=== PATIENT | female | born 1950 | race Caucasian/White ===

== ENCOUNTER 2017-04-15 14:17 | Emergency (ER) | payer MEDICARE, BC ==
--- NOTE | 2017-04-15 14:40 | CT ---
Head wo Cont INDICATION: Right-sided stroke. COMPARISON: 784 FINDINGS: No acute intracranial hemorrhage, mass, or edema. Generalized cerebral and cerebellar volu me loss. Patchy low attenuation in the periventricular and subcortical deep white matter is nonspeci fic, but most compatible with chronic small-vessel ischemic changes. Low-attenuation involving the r ight putamen could be due to subacute infarct. Additional small focus of low attenuation in the post erior left parasagittal parietal lobe could represent subacute infarct. Fluid in the right mastoid a ir cells. Remainder unremarkable. IMPRESSION: Low attenuation involving the right putamen could represent subacute or chronic infarct. Additional small focus of low attenuation in the left posterior parasagittal parietal lobe could re present subacute infarct on axial image 27. Findings discussed with Dr. Ibanez by telephone at 2:35 PM on 04/15/2017.
--- NOTE | 2017-04-15 14:46 | CR ---
Chest 1V Frontal INDICATION: rt sided stroke. FINDINGS: Normal heart size. Benign calcified granuloma right midlung. Postoperative changes cervica l spine. Exam otherwise unremarkable.
--- NOTE | 2017-04-15 15:01 | EDM.PDOC ---
ED HPI GENERAL MEDICAL PROBLEM - General Chief Complaint: Neuro Symptoms/Deficits Stated Complaint: STROKE? Time Seen by Provider: 04/15/17 14:20 Source of Information: Reports: Patient, Family History Limitations: Reports: No Limitations - History of Present Illness INITIAL COMMENTS - FREE TEXT/NARRATIVE: Pt has garbled speech and weakness on the left arm and left leg. She states she started having symptoms last nite and di get some better. She continued to have difficulty walking but her speech got better. At 10 am she once again was having difficulty expressing her self. Onset: Other ( started last nite. ) Duration: Hour(s): Location: Reports: Head Associated Symptoms: Reports: Other ( difficulty expressing herself and weakness in the left arm and left leg. ) - Related Data Allergies Allergy/AdvReac Type Severity Reaction Status Date / Time adhesive tape Allergy Rash Verified 04/15/17 14:38 Home Meds: Home Meds Aspirin [Adult Low Dose Aspirin EC] 81 mg PO DAILY 06/03/15 [History] Cholecalciferol (Vitamin D3) [Vitamin D3] 50,000 units PO Q7D 06/03/15 [History] FLUoxetine [PROzac] 40 mg PO DAILY 06/03/15 [History] Ibuprofen 400 mg PO Q4H PRN 06/03/15 [History] Lisinopril [Prinivil] 10 mg PO DAILY 06/03/15 [History] Metoprolol Tartrate [Lopressor] 25 mg PO BID 06/03/15 [History] Niacin 250 mg PO DAILY 06/03/15 [History] Potassium Chloride [Klor-Con 10] 20 meq PO DAILY 06/03/15 [History] Rosuvastatin [Crestor] 20 mg PO BEDTIME 06/03/15 [History] diphenhydrAMINE [Benadryl] 25 mg PO Q6H PRN 06/03/15 [History] Past Medical History Cardiovascular History: Reports: High Cholesterol, Hypertension Respiratory History: Reports: COPD Gastrointestinal History: Reports: Chronic Constipation, Colon Polyp [employer] History: Reports: Neurological History: Reports: Vertigo, Other (See Below) Other Neuro History: black outs with falls Psychiatric History: Reports: Depression Endocrine/Metabolic History: Reports: Hypothyroidism Other Endocrine/Metabolic History: thyroid nodule Other Dermatologic History: abrasions, scabs from falls, poison amrik in past, skin cancer on nose the "good kind" - Past Surgical History HEENT Surgical History: Reports: Cataract Surgery, Laser Surgery, Naso-Sinus Surgery Respiratory Surgical History: Reports: None Female Surgical History: Reports: Section, Hysterectomy Endocrine Surgical History: Reports: None Neurological Surgical History: Reports: Other (See Below) Other Musculoskeletal Surgeries/Procedures:: neck fusion Other Oncologic Surgeries/Procedures: skin CA removed from nose Social & Family History - Tobacco Use Smoking Status *Q: Current Every Day Smoker Years of Tobacco use: 47 Packs/Tins Daily: 1 Used Tobacco, but Quit: No Second Hand Smoke Exposure: Yes - Recreational Drug Use Recreational Drug Use: No ED ROS GENERAL - Review of Systems Review Of Systems: See Below Constitutional: Reports: No Symptoms HEENT: Reports: No Symptoms Respiratory: Reports: No Symptoms, Other (pt is a heavy smoker) Cardiovascular: Reports: No Symptoms Endocrine: Reports: No Symptoms GI/Abdominal: Reports: No Symptoms : Reports: No Symptoms Musculoskeletal: Reports: No Symptoms Skin: Reports: No Symptoms Neurological: Reports: Trouble Speaking, Difficulty Walking, Weakness, Change in Speech Psychiatric: Reports: No Symptoms ED EXAM, NEURO - Physical Exam Exam: See Below Text/Narrative:: pt started having difficulty speaking and had weaknessin the left arm and the left leg. She is very garbled with her speech. Exam Limited By: No Limitations General Appearance: Alert, Mild Distress, Other ( pt is struggling with her speech pupils are equal and reactive) Ears: Normal TMs Nose: Normal Inspection Throat/Mouth: Normal Inspection Head Exam: Atraumatic Neck: Normal Inspection Respiratory/Chest: No Respiratory Distress Cardiovascular: Regular Rate, Rhythm GI/Abdominal: Other (normal heart rhythm, her bp is quite elevated) (Female) Exam: Deferred Rectal (Female) Exam: Deferred Neurological: Alert, Oriented x 3, Other (speech is very garbled and she has definite weakness on the left side. ) Back Exam: Normal Inspection Extremities: Other (pt is weak in the left arm and left leg. ) Psychiatric: Depressed Mood, Other (pt is crying alot and seemes more emotional than usual. ) Course - Vital Signs Last Recorded V/S: Last Vital Signs Temp 36.6 C 04/15/17 14:25 Pulse 103 H 04/15/17 14:25 Resp 15 04/15/17 14:25 BP 183/141 H 04/15/17 14:25 Pulse Ox 93 L 04/15/17 14:25 - Orders/Labs/Meds Orders: Active Orders 24 hr Category Date Time Status EKG Documentation Completion [RC] ASDIRECTED Care 04/15/17 14:21 Active UA W/MICROSCOPIC [URIN] Urgent Lab 04/15/17 14:20 Uncollected Sodium Chloride 0.9% [Normal Saline] 1,000 ml Med 04/15/17 15:30 Ordered IV ASDIRECTED EKG 12 Lead [EK] Routine Ther 04/15/17 14:21 Ordered Medication Orders Sodium Chloride (Normal Saline) 1,000 mls @ 75 mls/hr IV ASDIRECTED JAXSON Labs: Laboratory Tests 04/15/17 04/15/17 04/15/17 Range/Units 14:30 14:30 14:30 WBC 9.3 (4.5-11.0) K/uL RBC 4.84 (3.30-5.50) M/uL Hgb 14.8 (12.0-15.0) g/dL Hct 42.6 (36.0-48.0) % MCV 88 (80-98) fL MCH 31 (27-31) pg MCHC 35 (32-36) % Plt Count 207 (150-400) K/uL Neut % (Auto) 70 H (36-66) % Lymph % (Auto) 18 L (24-44) % [place] % (Auto) 8 H (2-6) % Eos % (Auto) 2 (2-4) % Baso % (Auto) 1 (0-1) % APTT (27.0-36.0) sec Sodium 141 (140-148) mmol/L Potassium 3.2 L (3.6-5.2) mmol/L Chloride 105 (100-108) mmol/L Carbon Dioxide 24 (21-32) mmol/L Anion Gap 15.2 H (5.0-14.0) mmol/L BUN 9 (7-18) mg/dL Creatinine 0.9 (0.6-1.0) mg/dL Est Cr Clr Drug Dosing 52.38 mL/min Estimated GFR (MDRD) > 60 (>60) Glucose 96 (74-106) mg/dL Calcium 9.0 (8.5-10.1) mg/dL Total Bilirubin 0.6 (0.2-1.0) mg/dL AST 17 (15-37) U/L ALT 17 (12-78) U/L Alkaline Phosphatase 113 (46-116) U/L Troponin I < 0.017 (0.000-0.056) ng/mL Total Protein 7.6 (6.4-8.2) g/dL Albumin 3.7 (3.4-5.0) g/dL Globulin 3.9 H (2.3-3.5) g/dL Albumin/Globulin Ratio 1.0 L (1.2-2.2) 04/15/17 Range/Units 14:30 WBC (4.5-11.0) K/uL RBC (3.30-5.50) M/uL Hgb (12.0-15.0) g/dL Hct (36.0-48.0) % MCV (80-98) fL MCH (27-31) pg MCHC (32-36) % Plt Count (150-400) K/uL Neut % (Auto) (36-66) % Lymph % (Auto) (24-44) % [place] % (Auto) (2-6) % Eos % (Auto) (2-4) % Baso % (Auto) (0-1) % APTT 27.2 (27.0-36.0) sec Sodium (140-148) mmol/L Potassium (3.6-5.2) mmol/L Chloride (100-108) mmol/L Carbon Dioxide (21-32) mmol/L Anion Gap (5.0-14.0) mmol/L BUN (7-18) mg/dL Creatinine (0.6-1.0) mg/dL Est Cr Clr Drug Dosing mL/min Estimated GFR (MDRD) (>60) Glucose (74-106) mg/dL Calcium (8.5-10.1) mg/dL Total Bilirubin (0.2-1.0) mg/dL AST (15-37) U/L ALT (12-78) U/L Alkaline Phosphatase (46-116) U/L Troponin I (0.000-0.056) ng/mL Total Protein (6.4-8.2) g/dL Albumin (3.4-5.0) g/dL Globulin (2.3-3.5) g/dL Albumin/Globulin Ratio (1.2-2.2) Meds: Medications Generic Name Dose Route Start Last Admin Trade Name Freq PRN Reason Stop Dose Admin Sodium Chloride 1,000 mls @ 75 mls/hr 04/15/17 15:30 Normal Saline IV ASDIRECTED JAXSON Discontinued Medications Generic Name Dose Route Start Last Admin Trade Name Freq PRN Reason Stop Dose Admin Labetalol HCl 20 mg 04/15/17 15:24 Normodyne IVPUSH 04/15/17 15:25 NOW ONE Protocol Potassium Chloride 20 meq 04/15/17 15:28 Klor-Con M20 PO 04/15/17 15:29 ONETIME ONE - Re-Assessments/Exams Free Text/Narrative Re-Assessment/Exam: 04/15/17 15:32 ekg shows a normal sinus. rhythm, her cat scan shows an area of low attenuation in the rt putmen area and a area of low attenuation in left parietal lobe. her lab work looks normal except a k at 3.2. Her bp is elevated 154/114. Departure - Departure Time of Disposition: 15:36 Disposition: DC/Tfer to Acute Hospital 02 Condition: Serious Clinical Impression: Right-sided cerebrovascular accident (CVA), Hypokalemia, Hypertension - Discharge Information Referrals: Jovi Andrew MD [Primary Care Provider] - Forms: ED Department Discharge Care Plan Goals: transfer to [facility]. - My Orders Last 24 Hours: My Active Orders 04/15/17 14:20 UA W/MICROSCOPIC [URIN] Urgent 04/15/17 14:21 EKG Documentation Completion [RC] ASDIRECTED EKG 12 Lead [EK] Routine 04/15/17 15:30 Sodium Chloride 0.9% [Normal Saline] 1,000 ml IV ASDIRECTED - Assessment/Plan Last 24 Hours: My Active Orders 04/15/17 14:20 UA W/MICROSCOPIC [URIN] Urgent 04/15/17 14:21 EKG Documentation Completion [RC] ASDIRECTED EKG 12 Lead [EK] Routine 04/15/17 15:30 Sodium Chloride 0.9% [Normal Saline] 1,000 ml IV ASDIRECTED
[2017-04-15] MEDS ORDERED: Labetalol 20 MG/4 ML Syringe IVPUSH ONE (15:24)
[2017-04-15] MEDS ORDERED: Potassium Chloride 20 MEQ Tab.ER PO ONE (15:28)
[2017-04-15] MEDS ORDERED: Sodium Chloride 0.9% 1,000 ML IV SCH (15:30)
[2017-04-15 15:50] VITALS: BP 166/111
== END 2017-04-15 16:18 ==
LOC: JP.ED 14:17
DX: I63.9 Cerebral infarction, unspecified (principal); G81.94 Hemiplegia, unspecified affecting left nondominant side; E87.6 Hypokalemia; I10 Essential (primary) hypertension; E78.00 Pure hypercholesterolemia, unspecified; J44.9 Chronic obstructive pulmonary disease, unspecified; F32.9 Major depressive disorder, single episode, unspecified; E03.9 Hypothyroidism, unspecified; F17.210 Nicotine dependence, cigarettes, uncomplicated; Z98.49 Cataract extraction status, unspecified eye; Z90.710 Acquired absence of both cervix and uterus; Z98.890 Other specified postprocedural states; Z79.82 Long term (current) use of aspirin; Z79.899 Other long term (current) drug therapy; Z91.048 Other nonmedicinal substance allergy status
CPT/HCPCS: 36415; 70450; 71010; 80053; 84484; 85025; 85730; 93005; 96361; 96374; 99285; J7040; 93010

== ENCOUNTER 2019-05-13 00:05 | Emergency (ER) | payer MEDICARE, BC ==
[2019-05-13] MEDS ORDERED: Lidocaine 1% with EPINEPHrine 1:100,000 50 ML MDV INFILT ONE (01:20)
[2019-05-13] MEDS ORDERED: Diphtheria,Pertussis(Acell),Tetanus Vaccine 0.5 ML SDV IM ONE (01:21)
--- NOTE | 2019-05-13 01:33 | EDM.PDOC ---
ED HPI GENERAL MEDICAL PROBLEM - General Chief Complaint: Laceration Stated Complaint: FELL HIT HEAD Time Seen by Provider: 05/13/19 01:15 Source of Information: Reports: Patient History Limitations: Reports: No Limitations - History of Present Illness INITIAL COMMENTS - FREE TEXT/NARRATIVE: 68 yo who presents with concerns of fall and headstrike. She recently had surgery on her left eye, currently with patch in place. Tonight she stumbled and fell, striking her head on fireplace hearth. No LOC. No blood thinners. She denies neck pain. No RED, no vision changes, no weakness in the extremities or gait difficulty Left Head Pain Score (Numeric/FACES): 2 - Related Data Allergies Allergy/AdvReac Type Severity Reaction Status Date / Time adhesive tape Allergy Rash Verified 05/13/19 00:43 Home Meds: Home Meds Aspirin [Adult Low Dose Aspirin EC] 81 mg PO DAILY 06/03/15 [History] Cholecalciferol (Vitamin D3) [Vitamin D3] 50,000 units PO Q7D 06/03/15 [History] FLUoxetine [PROzac] 40 mg PO DAILY 06/03/15 [History] Lisinopril [Prinivil] 10 mg PO DAILY 06/03/15 [History] Potassium Chloride [Klor-Con 10] 10 meq PO DAILY 06/03/15 [History] Rosuvastatin [Crestor] 40 mg PO BEDTIME 06/03/15 [History] diphenhydrAMINE [Benadryl] 25 mg PO Q6H PRN 06/03/15 [History] Omeprazole 20 mg PO DAILY 05/13/19 [History] amLODIPine Besylate [Amlodipine Besylate] 10 mg PO DAILY 05/13/19 [History] Past Medical History Cardiovascular History: Reports: High Cholesterol, Hypertension Respiratory History: Reports: COPD Gastrointestinal History: Reports: Chronic Constipation, Colon Polyp, GERD [employer] MANAGER History: Reports: Neurological History: Reports: Concussion, CVA, Vertigo, Other (See Below) Other Neuro History: black outs with falls Psychiatric History: Reports: Depression Endocrine/Metabolic History: Reports: Hypothyroidism Other Endocrine/Metabolic History: thyroid nodule Other Dermatologic History: skin cancer on nose the "good kind" - Past Surgical History HEENT Surgical History: Reports: Cataract Surgery, Eye Surgery, Laser Surgery, Naso-Sinus Surgery Respiratory Surgical History: Reports: None GI Surgical History: Reports: Colonoscopy, Polypectomy Female Surgical History: Reports: Section, Hysterectomy Endocrine Surgical History: Reports: None Neurological Surgical History: Reports: Other (See Below) Other Musculoskeletal Surgeries/Procedures:: neck fusion Other Oncologic Surgeries/Procedures: skin CA removed from nose Social & Family History - Tobacco Use Smoking Status *Q: Current Every Day Smoker Years of Tobacco use: 40 Packs/Tins Daily: 0.5 - Recreational Drug Use Recreational Drug Use: No ED ROS GENERAL - Review of Systems Review Of Systems: See Below Constitutional: Reports: No Symptoms HEENT: Reports: No Symptoms Respiratory: Reports: No Symptoms Cardiovascular: Reports: No Symptoms Endocrine: Reports: No Symptoms GI/Abdominal: Reports: No Symptoms : Reports: No Symptoms Musculoskeletal: Reports: No Symptoms Skin: Reports: Wound Neurological: Reports: No Symptoms Psychiatric: Reports: No Symptoms Hematologic/Lymphatic: Reports: No Symptoms Immunologic: Reports: No Symptoms ED EXAM, SKIN/RASH Exam: See Below Exam Limited By: No Limitations General Appearance: Alert Ears: Normal External Exam Nose: Normal Inspection Throat/Mouth: Normal Inspection Head: Normocephalic, Other (Approx 3 cm laceration left forehead with visible galeal aponerosis ) Neck: Non-Tender, Full Range of Motion Respiratory/Chest: No Respiratory Distress, Lungs Clear, Chest Non-Tender Cardiovascular: Regular Rate, Rhythm GI/Abdominal: Soft, Non-Tender Extremities: Normal Inspection Neurological: Alert, Oriented, CN II-XII Intact, No Motor/Sensory Deficits Psychiatric: Normal Affect, Normal Mood Skin: Warm, Dry ED SKIN PROCEDURES - Laceration/Wound Repair Left Forehead Appearance: Subcutaneous, Clean Anesthetic Type: Local Local Anesthesia - Lidocaine (Xylocaine): 1% with EPI Skin Prep: Chlorhexidine (Hibiciens) Exploration/Debridement/Repair: Wound Explored Closed with: Sutures Lac/Wound length In cm: 2.5 Suture Size: 4-0 # of Sutures: 3 Suture Type: Nylon Suture Size: 5-0 # of Sutures: 3 Repaired with: Vicryl Course - Vital Signs Last Recorded V/S: Last Vital Signs Temp Pulse 76 05/13/19 03:17 Resp 20 05/13/19 03:17 BP 127/75 05/13/19 03:17 Pulse Ox 94 L 05/13/19 03:17 - Orders/Labs/Meds Orders: Active Orders 24 hr Category Date Time Status Vaccines to be Administered [RC] PER UNIT ROUTINE Care 05/13/19 01:21 Active Meds: Medications Discontinued Medications Generic Name Dose Route Start Last Admin Trade Name [place] PRN Reason Stop Dose Admin Diphtheria/Tetanus/Acell Pertussis 0.5 ml 05/13/19 01:21 05/13/19 01:56 Adacel IM 05/13/19 01:22 0.5 ml .ONCE ONE Administration Lidocaine/Epinephrine 10 ml 05/13/19 01:20 05/13/19 01:57 Xylocaine 1% With Epinephrine 1:100,000 INFILT 05/13/19 01:21 10 ml ONETIME ONE Administration - Re-Assessments/Exams Free Text/Narrative Re-Assessment/Exam: 68 yo present with left front scalp laceration after mechanical fall with headstrike. CT head and neck negative No other traumatic injuries. Laceration repaired as above - galea aponeurosis closed with vicryl and skin closure with nylon. Instructed on signs of infection. Will f/u with PCP in 5 days for suture removal. 05/13/19 04:45 Departure - Departure Time of Disposition: 04:15 Disposition: Home, Self-Care 01 Clinical Impression: Scalp laceration Qualifiers: Encounter type: initial encounter Qualified Code(s): S01.01XA - Laceration without foreign body of scalp, initial encounter - Discharge Information *PRESCRIPTION DRUG MONITORING PROGRAM REVIEWED*: No *COPY OF PRESCRIPTION DRUG MONITORING REPORT IN PATIENT ASHLYN: No Instructions: Laceration Care, Adult Referrals: Jovi Andrew MD [Primary Care Provider] - Forms: ED Department Discharge Additional Instructions: Watch your wound for signs of infection as discussed and please see a doctor if these develop. You should have your sutures removed in approximately 5 days Try to avoid getting the wound wet for the first 48 hrs - My Orders Last 24 Hours: My Active Orders 05/13/19 01:21 Vaccines to be Administered [RC] PER UNIT ROUTINE - Assessment/Plan Last 24 Hours: My Active Orders 05/13/19 01:21 Vaccines to be Administered [RC] PER UNIT ROUTINE
--- NOTE | 2019-05-13 02:10 | CRLCT ---
INDICATION: Fall. Head trauma. Recent eye surgery. CT HEAD WITHOUT CONTRAST TECHNIQUE: Multiple axial CT images were performed through the head without intravenous contrast administration. COMPARISON: 04/15/[address] FINDINGS: No acute intracranial hemorrhage is identified. No extra-axial collections are evident and there is no mass effect or midline shift. There is mild diffuse age-related brain atrophy, as before. A metallic density consistent with an embolization coil is seen in the region the anterior communicating artery, new compared to the previous exam. Ventricular size and configuration are within normal limits for the patient`s age. Nayak-white differentiation is within normal limits. There is unchanged patchy hypodensity in the periventricular white matter, a nonspecific finding which most likely reflects chronic small vessel ischemic change. Small chronic bilateral basal ganglia and left occipital lobe infarcts are again seen. Intracranial atherosclerotic vascular calcifications are noted. There is a small scalp hematoma over the left frontal region. Osseous structures are within normal limits and no fractures are seen. There is gas within the right orbit and within the globe of the right eye consistent with recent postoperative changes. Included portions of the paranasal sinuses and mastoid air cells are normally aerated. IMPRESSION: 1. No acute intracranial abnormality identified. 2. Small scalp hematoma over the left frontal region. No fracture identified. 3. Mild age-related brain atrophy, white matter hypodensity consistent with chronic small vessel ischemic change, small chronic infarcts, and intracranial atherosclerotic vascular calcifications appear similar to the previous exam. 4. Metallic embolization coil in the region of the anterior communicating artery, new from before. 5. Recent postoperative changes in the right orbit. KANNAN BRENNER MD [employer] Dictated by Panchito Brenner MD @ 05/13/2019 2:08:14 AM Dictated by: Panchito Brenner MD @ 05/13/2019 02:08:27 (Electronically Signed)
--- NOTE | 2019-05-13 02:41 | CRLCT ---
INDICATION: FELL PAIN CT CERVICAL SPINE WITHOUT CONTRAST TECHNIQUE: Multidetector axial CT imaging was performed through the cervical spine, without contrast. Sagittal and coronal reconstructions were generated. FINDINGS: No acute fractures are identified. Osseous alignment is within normal limits and no subluxation is seen. Prevertebral soft tissues are unremarkable. There are mature postoperative changes of cervical fusion of C3 through C7 including bone grafts within the C3-4 through C6-7 disc spaces and posterior bone grafting and stabilization rebeca placement at these levels. Surgical hardware appears intact. Included portions of the airway and lung apices are within normal limits. IMPRESSION: 1. No fracture, subluxation, or other acute finding identified. 2. Cervical spine postoperative changes, as noted above. KANNAN BRENNER MD [employer] Dictated by Panchito Brenner MD @ 05/13/2019 2:41:13 AM Dictated by: Panchito Brenner MD @ 05/13/2019 02:41:32 (Electronically Signed)
[2019-05-13 03:18] VITALS: BP 127/75; PULSE 76
== END 2019-05-13 04:20 | disposition home or self-care (01) ==
LOC: JP.ED 00:05
DX: S01.01XA Laceration without foreign body of scalp, initial encounter (principal); S01.81XA Laceration without foreign body of other part of head, initial encounter; Z23 Encounter for immunization; I10 Essential (primary) hypertension; E78.00 Pure hypercholesterolemia, unspecified; J44.9 Chronic obstructive pulmonary disease, unspecified; K21.9 Gastro-esophageal reflux disease without esophagitis; F32.9 Major depressive disorder, single episode, unspecified; F17.210 Nicotine dependence, cigarettes, uncomplicated; Z91.048 Other nonmedicinal substance allergy status; Z79.82 Long term (current) use of aspirin; Z79.899 Other long term (current) drug therapy; W19.XXXA Unspecified fall, initial encounter; W22.8XXA Striking against or struck by other objects, initial encounter
CPT/HCPCS: 12011; 12051; 70450; 72125; 90471; 90715; 99283; 99283-25

== ENCOUNTER 2019-08-10 18:08 | Emergency (ER) | payer MEDICARE, BC ==
[2019-08-10 18:13] VITALS: BP 116/48; PULSE 73
--- NOTE | 2019-08-10 18:20 | EDM.PDOC ---
ED HPI GENERAL MEDICAL PROBLEM - General Chief Complaint: Syncope Stated Complaint: LIGHT HEADED Time Seen by Provider: 08/10/19 18:15 Source of Information: Reports: Patient, Family, Old Records, RN History Limitations: Reports: No Limitations - History of Present Illness INITIAL COMMENTS - FREE TEXT/NARRATIVE: 69 yo female arrives from [facility] by EMS after she got light-headed in the check out line. Has not been ill recently. Denies CP or SOB. Admits she has not eaten anything all day today. Has had spells like this in the past that resolve with sitting down. No black or bloody stools. No fever. No vomiting. Onset: Today Onset Date: 08/10/19 Onset Time: 17:15 Duration: Other (seconds) Location: Reports: Head (light-headed) Quality: Reports: Other (no pain) Severity: Moderate Improves with: Reports: Other (sitting down) Worsens with: Reports: Other (standing still) Context: Reports: Other (See HPI) Associated Symptoms: Reports: No Other Symptoms Treatments RN OBGYN: Reports: Other (see below) (none) - Related Data Allergies Allergy/AdvReac Type Severity Reaction Status Date / Time adhesive tape Allergy Rash Verified 08/10/19 18:11 Home Meds: Home Meds Aspirin [Adult Low Dose Aspirin EC] 81 mg PO DAILY 06/03/15 [History] Cholecalciferol (Vitamin D3) [Vitamin D3] 50,000 units PO Q7D 06/03/15 [History] FLUoxetine [PROzac] 40 mg PO DAILY 06/03/15 [History] Potassium Chloride [Klor-Con 10] 10 meq PO DAILY 06/03/15 [History] Rosuvastatin [Crestor] 40 mg PO BEDTIME 06/03/15 [History] diphenhydrAMINE [Benadryl] 25 mg PO Q6H PRN 06/03/15 [History] lisinopriL [Prinivil] 10 mg PO DAILY 06/03/15 [History] Omeprazole 20 mg PO DAILY 05/13/19 [History] amLODIPine Besylate [Amlodipine Besylate] 10 mg PO DAILY 05/13/19 [History] Past Medical History Cardiovascular History: Reports: High Cholesterol, Hypertension Respiratory History: Reports: COPD Gastrointestinal History: Reports: Chronic Constipation, Colon Polyp, GERD [employer] History: Reports: Neurological History: Reports: Concussion, CVA, Vertigo, Other (See Below) Other Neuro History: black outs with falls Psychiatric History: Reports: Depression Endocrine/Metabolic History: Reports: Hypothyroidism Other Endocrine/Metabolic History: thyroid nodule Other Dermatologic History: skin cancer on nose the "good kind" - Past Surgical History HEENT Surgical History: Reports: Cataract Surgery, Eye Surgery, Laser Surgery, Naso-Sinus Surgery Respiratory Surgical History: Reports: None GI Surgical History: Reports: Colonoscopy, Polypectomy Female Surgical History: Reports: Section, Hysterectomy Endocrine Surgical History: Reports: None Other Musculoskeletal Surgeries/Procedures:: neck fusion Other Oncologic Surgeries/Procedures: skin CA removed from nose Social & Family History - Tobacco Use Smoking Status *Q: Current Every Day Smoker Years of Tobacco use: 50 Packs/Tins Daily: 1.5 - Caffeine Use Caffeine Use: Reports: None - Recreational Drug Use Recreational Drug Use: No ED ROS GENERAL - Review of Systems Review Of Systems: See Below Constitutional: Reports: No Symptoms HEENT: Reports: No Symptoms Respiratory: Reports: No Symptoms Cardiovascular: Reports: Lightheadedness Endocrine: Reports: No Symptoms GI/Abdominal: Reports: No Symptoms : Reports: No Symptoms Musculoskeletal: Reports: No Symptoms Skin: Reports: No Symptoms Neurological: Reports: No Symptoms Psychiatric: Reports: No Symptoms - Physical Exam Exam: See Below Exam Limited By: No Limitations General Appearance: Alert, WD/WN, No Apparent Distress Eye Exam: Bilateral Eye: Normal Inspection Ears: Normal External Exam, Normal Canal, Hearing Grossly Normal, Normal TMs Nose: Normal Inspection, No Blood Throat/Mouth: Normal Inspection, Normal Lips, Normal Oropharynx, Normal Voice, No Airway Compromise. No: Normal Teeth (edentulous) Head Exam: Atraumatic, Normocephalic Neck: Normal Inspection, Supple, Non-Tender Respiratory/Chest: No Respiratory Distress, Lungs Clear, Normal Breath Sounds, No Accessory Muscle Use Cardiovascular: Normal Peripheral Pulses, Regular Rate, Rhythm, No Edema, Extra Beats GI/Abdominal: Normal Bowel Sounds, Soft, Non-Tender, No Distention Neuro Exam (Abbreviated): Alert, Oriented, CN II-XII Intact, Normal Cognition, No Motor/Sensory Deficits Back Exam: Normal Inspection, Full Range of Motion. No: CVA Tenderness (R), CVA Tenderness (L) Extremities: Normal Inspection, Normal Range of Motion, Non-Tender, No Pedal Edema Psychiatric: Normal Affect, Normal Mood Skin Exam: Warm, Dry, Intact, Normal Color, No Rash EKG INTERPRETATION EKG Date: 08/10/19 Time: 18:05 Rhythm: NSR Rate (Beats/Min): 83 [facility]: Normal P-Wave: Present QRS: Normal ST-T: Normal QT: Normal Comparison: Change From Previous EKG (PVC's more frequent) Course - Vital Signs Last Recorded V/S: Last Vital Signs Temp 36.2 C 08/10/19 18:09 Pulse 73 08/10/19 18:09 Resp 16 08/10/19 18:09 BP 116/48 L 08/10/19 18:09 Pulse Ox 96 08/10/19 18:09 Orthostatic Blood Pressure [ 118/65 Standing] Orthostatic Blood Pressure [ 125/57 Sitting] Orthostatic Blood Pressure [ 114/61 Supine] - Orders/Labs/Meds Orders: Active Orders 24 hr Category Date Time Status Cardiac Monitoring [RC] .As Directed Care 08/10/19 18:21 Active EKG Documentation Completion [RC] ASDIRECTED Care 08/10/19 18:21 Active Orthostatic Vital Signs [RC] ASDIRECTED Care 08/10/19 18:21 Active UA W/MICROSCOPIC [URIN] Stat Lab 08/10/19 18:21 Ordered Magnesium Oxide Med 08/10/19 19:22 Once 800 mg PO ONETIME ONE EKG 12 Lead [EK] Routine Ther 08/10/19 18:21 Ordered Medication Orders Magnesium Oxide (Magnesium Oxide) 800 mg PO ONETIME ONE Stop: 08/10/19 19:23 Last Admin: 08/10/19 19:46 Dose: 800 mg Labs: Laboratory Tests 08/10/19 08/10/19 08/10/19 Range/Units 18:39 18:39 18:39 WBC 11.0 (4.5-11.0) K/uL RBC 4.45 (3.30-5.50) M/uL Hgb 13.1 (12.0-15.0) g/dL Hct 39.6 (36.0-48.0) % MCV 89 (80-98) fL MCH 29 (27-31) pg MCHC 33 (32-36) % Plt Count 235 (150-400) K/uL Sodium 140 (140-148) mmol/L Potassium 3.9 (3.6-5.2) mmol/L Chloride 103 (100-108) mmol/L Carbon Dioxide 23 (21-32) mmol/L Anion Gap 14.2 H (5.0-14.0) mmol/L BUN 13 (7-18) mg/dL Creatinine 1.2 H (0.6-1.0) mg/dL Est Cr Clr Drug Dosing 37.67 mL/min Estimated GFR (MDRD) 44 L (>60) Glucose 97 (74-106) mg/dL Calcium 8.9 (8.5-10.1) mg/dL Magnesium 1.6 L (1.8-2.4) mg/dL Troponin I < 0.017 (0.000-0.056) ng/mL Meds: Medications Generic Name Dose Route Start Last Admin Trade Name Freq PRN Reason Stop Dose Admin Magnesium Oxide 800 mg 08/10/19 19:22 08/10/19 19:46 Magnesium Oxide PO 08/10/19 19:23 800 mg ONETIME ONE Administration Departure - Departure Time of Disposition: 20:24 Disposition: Home, Self-Care 01 Condition: Fair Clinical Impression: Orthostatic dizziness - Discharge Information *PRESCRIPTION DRUG MONITORING PROGRAM REVIEWED*: No *COPY OF PRESCRIPTION DRUG MONITORING REPORT IN PATIENT ASHLYN: No Instructions: Dizziness, [id number] Referrals: Jovi Andrew MD [Primary Care Provider] - Forms: ED Department Discharge Additional Instructions: Eat or drink more regularly. F/U with your provider in the clinic as needed. Sepsis Event Note - Evaluation Sepsis Screening Result: No Definite Risk - Focused Exam Vital Signs: Vital Signs Temp Pulse Resp BP Pulse Ox 08/10/19 18:09 36.2 C 73 16 116/48 L 96 Date Exam was Performed: 08/10/19 Time Exam was Performed: 20:24 - My Orders Last 24 Hours: My Active Orders 08/10/19 18:21 Cardiac Monitoring [RC] .As Directed EKG Documentation Completion [RC] ASDIRECTED Orthostatic Vital Signs [RC] ASDIRECTED UA W/MICROSCOPIC [URIN] Stat EKG 12 Lead [EK] Routine 08/10/19 19:22 Magnesium Oxide 800 mg PO ONETIME ONE - Assessment/Plan Last 24 Hours: My Active Orders 08/10/19 18:21 Cardiac Monitoring [RC] .As Directed EKG Documentation Completion [RC] ASDIRECTED Orthostatic Vital Signs [RC] ASDIRECTED UA W/MICROSCOPIC [URIN] Stat EKG 12 Lead [EK] Routine 08/10/19 19:22 Magnesium Oxide 800 mg PO ONETIME ONE
[2019-08-10] MEDS ORDERED: Magnesium Oxide 400 MG Tab PO ONE (19:22)
== END 2019-08-10 20:33 | disposition home or self-care (01) ==
LOC: JP.ED 18:08
DX: R42 Dizziness and giddiness (principal); J44.9 Chronic obstructive pulmonary disease, unspecified; I10 Essential (primary) hypertension; E78.00 Pure hypercholesterolemia, unspecified; K21.9 Gastro-esophageal reflux disease without esophagitis; Z86.73 Personal history of transient ischemic attack (TIA), and cerebral infarction without residual deficits; F32.9 Major depressive disorder, single episode, unspecified; E03.9 Hypothyroidism, unspecified; F17.210 Nicotine dependence, cigarettes, uncomplicated; Z91.048 Other nonmedicinal substance allergy status; Z79.82 Long term (current) use of aspirin; Z79.899 Other long term (current) drug therapy
CPT/HCPCS: 36415; 80048; 83735; 84484; 85027; 93005; 99284; A9270

== ENCOUNTER 2020-03-21 07:45 | Day surgery (SDC) | payer MEDICARE, BC ==
[~2020-03-21 07:45] MED LIST: Midazolam 1 MG/ML 2 ML SDV ONE; Propofol 200 MG/20 ML SDV ONE; fentaNYL 100 MCG/2 ML SDV ONE
[2020-03-21] MEDS: Dextrose 5%-Lactated Ringers 1,000 ML IV SCH ×2 (08:32→10:47)
[2020-03-21] MEDS ORDERED: Propofol 200 MG/20 ML SDV ONE (10:19)
[2020-03-21 12:19] VITALS: BP 118/68; PULSE 75
--- NOTE | 2020-03-23 16:28 | OR ---
DATE OF PROCEDURE: 03/21/2020 SURGEON: Jayme Vasques MD PREOPERATIVE DIAGNOSIS: History of colon polyps. POSTOPERATIVE DIAGNOSES: 1. History of colon polyps with a single recurrent polyp between 20 and 30 cm above the dentate line. 2. Uncomplicated left colonic diverticulosis. OPERATIVE PROCEDURE: Flexible colonoscopy with: 1. Polypectomy by snare technique (90137). 2. Injection of Kaycee ink at the polypectomy site (15427). ANESTHESIA: IV sedation. INDICATIONS FOR PROCEDURE: This is a 69-year-old female presenting for followup colonoscopy, who has had previous polyps removed in the past. Plan is to proceed with colonoscopy with polypectomy and/or biopsies as indicated. Potential risks including bleeding and perforation were discussed, and the patient wishes to proceed. DETAILS OF PROCEDURE: The patient was taken to the operative room and placed in a left lateral decubitus position. IV sedation was administered, after which the initial digital rectal exam was performed and was unremarkable. Colonoscope was then passed into the rectum with retroflexion revealing uncomplicated hemorrhoidal columns. The scope was eventually passed to the level of the cecum. The prep was fairly good with only small amount of liquid and some small amount of solid stool present. To that level, the patient was noted to have uncomplicated left colonic diverticulosis. The only additional abnormality noted was a single polyp measuring around 1 cm located in the area between 20 and 30 cm above the dentate line. This was encircled at its base with cautery snare and excised and then sent. This was too large to pass through the scope and was therefore grasped with a basket, which then allowed examination of the more distal colon as the polyp enclosed with the basket was withdrawn with no abnormalities additionally identified and the polyp was sent for histologic evaluation. In the event that the polyps would end up being malignant, 4 mL of Kaycee ink was injected into the submucosa adjacent to the polypectomy site and the procedure then concluded. The patient was taken to the recovery room in satisfactory condition. One additional note on this patient is she suffers from chronic constipation. We will begin some Colace 100 mg b.i.d. and the next colonoscopy, assuming today's polypectomy is benign, should be in 2 years. Jayme Vasques MD /[id number]
== END 2020-03-21 12:25 | disposition home or self-care (01) ==
LOC: JP.SDS 07:45
PROVIDERS: ATTEND Surgery
DX: Z12.11 Encounter for screening for malignant neoplasm of colon (principal); D12.6 Benign neoplasm of colon, unspecified; K57.30 Diverticulosis of large intestine without perforation or abscess without bleeding; K64.9 Unspecified hemorrhoids; J44.9 Chronic obstructive pulmonary disease, unspecified; I10 Essential (primary) hypertension; F17.210 Nicotine dependence, cigarettes, uncomplicated; Z86.010 Personal history of colon polyps; Z98.890 Other specified postprocedural states
CPT/HCPCS: 45381; 45385; 88305; J2704; J3010; J7121; J2250

== ENCOUNTER 2021-09-20 15:50 | Emergency (ER) | payer MEDICARE, OTHER ==
[2021-09-20] MEDS ORDERED: Sodium Chloride 0.9% 10 ML Syringe FLUSH PRN (15:54)
[2021-09-20] MEDS ORDERED: Lactated Ringers 1,000 ML IV SCH ×2 (16:00→19:15)
[2021-09-20] MEDS ORDERED: Ondansetron 4 MG/2 ML SDV IVPUSH ONE (17:32)
[2021-09-20 18:54] LABS: CORONAVIRUS COVID-19 NAA NEGATIVE (NEGATIVE)
[2021-09-20] MEDS ORDERED: Lactated Ringers 1,000 ML IV ONE (22:25)
[2021-09-20 23:06] VITALS: BP 115/44; PULSE 83
== END 2021-09-21 02:42 | disposition home or self-care (01) ==
LOC: JP.ED 15:50
DX: K52.9 Noninfective gastroenteritis and colitis, unspecified (principal); E78.00 Pure hypercholesterolemia, unspecified; I10 Essential (primary) hypertension; J44.9 Chronic obstructive pulmonary disease, unspecified; K21.9 Gastro-esophageal reflux disease without esophagitis; Z91.048 Other nonmedicinal substance allergy status; Z79.82 Long term (current) use of aspirin; Z79.899 Other long term (current) drug therapy; Z72.0 Tobacco use; Z86.73 Personal history of transient ischemic attack (TIA), and cerebral infarction without residual deficits
CPT/HCPCS: 0241U; 36415; 74176; 80053; 81001; 83605; 85025; 87046; 87493; 87899; 89055; 96374; 99284; 99285-25; J2405; J7120

== ENCOUNTER 2022-04-18 14:22 | Emergency (ER) | payer MEDICARE, OTHER ==
[2022-04-18] MEDS ORDERED: Sodium Chloride 0.9% 10 ML Syringe FLUSH PRN (18:02)
[2022-04-18] MEDS ORDERED: Sodium Chloride 0.9% 1,000 ML IV SCH (18:15)
[2022-04-18 18:54] LABS: ESTIMATED GFR 53 mL/min (>60)
[2022-04-18 20:25] VITALS: BP 124/55; PULSE 74
== END 2022-04-18 20:37 | disposition home or self-care (01) ==
LOC: JP.ED 14:22
DX: K80.20 Calculus of gallbladder without cholecystitis without obstruction (principal); K59.01 Slow transit constipation; J44.9 Chronic obstructive pulmonary disease, unspecified; K21.9 Gastro-esophageal reflux disease without esophagitis; I10 Essential (primary) hypertension; E03.9 Hypothyroidism, unspecified; F17.210 Nicotine dependence, cigarettes, uncomplicated; Z90.710 Acquired absence of both cervix and uterus; Z91.048 Other nonmedicinal substance allergy status; Z79.899 Other long term (current) drug therapy; Z79.82 Long term (current) use of aspirin; Z20.822 Contact with and (suspected) exposure to COVID-19
CPT/HCPCS: 36415; 74176; 80053; 83690; 85025; 86140; 96360; 96361; 99284; J3490; J7030; U0002

== ENCOUNTER 2022-07-06 06:20 | Day surgery (SDC) | payer MEDICARE, OTHER ==
[2022-07-06] MEDS ORDERED: Indocyanine Green 25 MG SDV ONE (06:51)
[2022-07-06] MEDS ORDERED: Sodium Chloride 0.9% 1,000 ML IV SCH (07:00)
[2022-07-06] MEDS ORDERED: metroNIDAZOLE/Normal Saline 500 MG in Premix Bag 1 BAG IV ONE (07:00)
[2022-07-06] MEDS ORDERED: ceFAZolin 2 GM in Sodium Chloride 0.9% 50 ML IV ONE (07:00)
[2022-07-06] MEDS ORDERED: fentaNYL 100 MCG/2 ML SDV ONE (07:22)
[2022-07-06] MEDS ORDERED: Ropivacaine 22 ML, dexAMETHasone 8 MG, EPINEPHrine 0.4 MG, Sodium Chloride 0.9% 55.6 ML NERVRT SCH ×4 (07:45)
[2022-07-06] MEDS: Bupivacaine 0.5% 50 ML MDV ONE ×2 (08:20→08:48)
[2022-07-06] MEDS: Lidocaine 1% with EPINEPHrine 1:100,000 50 ML MDV ONE ×2 (08:20→08:48)
[2022-07-06] MEDS ORDERED: Lactated Ringers 1,000 ML ONE (08:36)
[2022-07-06] MEDS ORDERED: Dexamethasone 4 MG/ML SDV ONE (08:56)
[2022-07-06] MEDS ORDERED: Rocuronium 50 MG/5 ML Vial ONE (08:56)
[2022-07-06] MEDS ORDERED: Succinylcholine 200 MG/10 ML MDV ONE (08:56)
[2022-07-06] MEDS ORDERED: Ondansetron 4 MG/2 ML SDV ONE (08:56)
[2022-07-06] MEDS ORDERED: Glycopyrrolate 0.2 MG/ML 5 ML MDV ONE (08:56)
[2022-07-06] MEDS ORDERED: Propofol 200 MG/20 ML SDV ONE (08:56)
[2022-07-06] MEDS ORDERED: Neostigmine Methylsulfate 1 MG/ML 5 ML Syringe ONE (08:56)
[2022-07-06] MEDS ORDERED: Benzocaine/Cetylpyridinium/Menthol Lozenge MUCMEM PRN (09:02)
[2022-07-06] MEDS ORDERED: Docusate Sodium 100 MG Cap PO PRN (09:02)
[2022-07-06] MEDS ORDERED: Zolpidem 5 MG Tab PO PRN (09:02)
[2022-07-06] MEDS ORDERED: Acetaminophen/HYDROcodone 325-5 MG Tab PO PRN (09:02)
[2022-07-06] MEDS ORDERED: hydrOXYzine HCL 100 MG/2 ML SDV IM PRN (09:02)
[2022-07-06] MEDS ORDERED: fentaNYL 100 MCG/2 ML SDV IVPUSH PRN ×3 (09:02)
[2022-07-06] MEDS ORDERED: Scopolamine 1.5 MG Transdermal Patch TOP ONE (09:02)
[2022-07-06] MEDS ORDERED: Ondansetron 4 MG/2 ML SDV IVPUSH PRN (09:02)
[2022-07-06 12:57] VITALS: BP 119/75; PULSE 76
== END 2022-07-06 17:30 | disposition home or self-care (01) ==
LOC: JP.SDS 06:20 → JP.MS 09:00 → JP.SDS 17:30
PROVIDERS: ATTEND Surgery
DX: K81.9 Cholecystitis, unspecified (principal); Z53.09 Procedure and treatment not carried out because of other contraindication; I10 Essential (primary) hypertension; E04.2 Nontoxic multinodular goiter; E78.00 Pure hypercholesterolemia, unspecified; Z90.49 Acquired absence of other specified parts of digestive tract; Z98.890 Other specified postprocedural states; Z90.710 Acquired absence of both cervix and uterus; Z79.899 Other long term (current) drug therapy; Z79.82 Long term (current) use of aspirin; Z91.048 Other nonmedicinal substance allergy status; Z20.822 Contact with and (suspected) exposure to COVID-19
CPT/HCPCS: 47000; 47562; A9270; J0171; J0330; J0690; J1100; J2405; J2704; J2710; J2795; J3010; J3410; J3490; J7030; J7120

== ENCOUNTER 2022-10-13 12:00 | Emergency (ER) | payer MEDICARE, OTHER ==
[2022-10-13] MEDS ORDERED: Sodium Chloride 0.9% 10 ML Syringe FLUSH PRN (12:24)
[2022-10-13 13:09] LABS: CORONAVIRUS COVID-19 NAA NEGATIVE (NEGATIVE)
[2022-10-13] MEDS ORDERED: Sodium Chloride 0.9% 500 ML IV ONE (13:54)
[2022-10-13] MEDS ORDERED: Sodium Chloride 0.9% 1,000 ML IV SCH (15:00)
[2022-10-13] MEDS ORDERED: Albuterol/Ipratropium 3.0-0.5 MG/3 ML Neb Soln NEB PRN (15:46)
[2022-10-13] MEDS: fentaNYL 50 MCG/ML SDV IVPUSH PRN ×2 (16:02→21:27)
[2022-10-13] MEDS ORDERED: Melatonin 3 MG Tab ONE (23:54)
[2022-10-14 06:19] VITALS: PULSE 77
[2022-10-14 08:00] VITALS: BP 107/48
[2022-10-14] MEDS ORDERED: Melatonin 3 MG Tab PO ONE ×2 (23:51)
== END 2022-10-14 09:09 ==
LOC: JP.ED 12:00
DX: S42.412A Displaced simple supracondylar fracture without intercondylar fracture of left humerus, initial encounter for closed fracture (principal); S80.01XA Contusion of right knee, initial encounter; S80.02XA Contusion of left knee, initial encounter; S90.32XA Contusion of left foot, initial encounter; S90.31XA Contusion of right foot, initial encounter; S00.83XA Contusion of other part of head, initial encounter; J44.9 Chronic obstructive pulmonary disease, unspecified; F17.210 Nicotine dependence, cigarettes, uncomplicated; E87.1 Hypo-osmolality and hyponatremia; I12.9 Hypertensive chronic kidney disease with stage 1 through stage 4 chronic kidney disease, or unspecified chronic kidney disease; N18.31 Chronic kidney disease, stage 3a; D63.1 Anemia in chronic kidney disease; E78.00 Pure hypercholesterolemia, unspecified; K21.9 Gastro-esophageal reflux disease without esophagitis; Z91.048 Other nonmedicinal substance allergy status; Z79.82 Long term (current) use of aspirin; Z79.899 Other long term (current) drug therapy; Z20.822 Contact with and (suspected) exposure to COVID-19; W18.30XA Fall on same level, unspecified, initial encounter; Y92.009 Unspecified place in unspecified non-institutional (private) residence as the place of occurrence of the external cause
CPT/HCPCS: 0241U; 29105; 29505; 36415; 70450; 73070-26-LT; 73070-LT; 73521; 73521-26; 735622650; 73562-50; 736302650; 73630-50; 80048; 85025; 93005; 93010; 96361; 96374; 96376; 99285; 99285-25; A9270-GY; J3010; J3490; J7030; J7040

== ENCOUNTER 2023-09-13 22:23 | Inpatient (IN) | payer MEDICARE, OTHER ==
[2023-09-13 22:45] LABS: BASOPHILS PERCENT AUTO 0.1 % (0.1-1.3); HEMATOCRIT 32.9 % (34.3-46.0); HEMOGLOBIN 11.1 g/dL (11.2-15.5); IMMATURE GRAN ABSOLUTE AUTO 0.05 K/uL (0.00-0.23); IMMATURE GRAN PERCENT AUTO 0.6 % (0.0-0.7); LYMPHOCYTES ABSOLUTE AUTO 0.32 K/uL (0.8-3.3); LYMPHOCYTES PERCENT AUTO 3.8 % (11.4-47.7); MEAN CORPUSCULAR HGB CONC 33.7 g/dL (31.6-35.5); MEAN CORPUSCULAR VOLUME 91.9 fL (81.4-99.0); MONOCYTES ABSOLUTE AUTO 0.69 K/uL (0.20-0.90); MONOCYTES PERCENT AUTO 8.2 % (3.3-12.6); NEUTROPHILS ABSOLUTE AUTO 7.37 K/uL (1.0-7.6); NEUTROPHILS PERCENT AUTO 87.3 % (40.0-78.1); PLATELET COUNT,PLT 202 K/uL (130-375); RED BLOOD CELL COUNT 3.58 M/uL (3.77-5.24); WHITE BLOOD CELL COUNT,WBC 8.4 K/uL (3.2-11.0)
[2023-09-13 22:48] LABS: BASOPHILS ABSOLUTE AUTO 0.01 K/uL (0.00-0.10)
[2023-09-13 22:59] LABS: CALCIUM 7.9 mg/dL (8.5-10.1); CREATININE 1.6 mg/dL (0.6-1.0); EST CRCL DRUG DOSING (CG) 27.76 mL/min; POTASSIUM,K 3.4 mmol/L (3.6-5.2)
[2023-09-13 23:04] LABS: ANION GAP 16.4 mmol/L (5.0-14.0)
[2023-09-13 23:07] LABS: APPEARANCE,URINE CLEAR (CLEAR); BILIRUBIN,URINE SMALL (NEGATIVE); COLOR,URINE YELLOW (YELLOW); GLUCOSE,URINE NEGATIVE (NEGATIVE); KETONES,URINE 15 mg/dL (NEGATIVE); LEUKOCYTE ESTERASE,URINE NEGATIVE (NEGATIVE); NITRITE,URINE NEGATIVE (NEGATIVE); OCCULT BLOOD,URINE NEGATIVE (NEGATIVE); PH,URINE 5.5 (5.0-8.0); PROTEIN,URINE 30 mg/dL (NEGATIVE)
[2023-09-13 23:10] LABS: BACTERIA,URINE FEW; EPITHELIAL CELLS,URINE FEW; RBC,URINE 0-5 (0-5)
[2023-09-13 23:11] LABS: AMORPHOUS SEDIMENT,URINE MODERATE; MUCUS,URINE NOT SEEN
[2023-09-13] MEDS ORDERED: Sodium Chloride 0.9% 1,000 ML IV ONE (23:22)
[2023-09-13] MEDS ORDERED: Azithromycin 500 MG in Sodium Chloride 0.9% 150 ML IV ONE (23:24)
[2023-09-13] MEDS ORDERED: cefTRIAXone 2 GM in Sodium Chloride 0.9% 50 ML IV ONE (23:24)
[2023-09-14 00:05] LABS: CORONAVIRUS COVID-19 NAA NEGATIVE (NEGATIVE); INFLUENZA A NAA NEGATIVE (NEGATIVE); INFLUENZA B NAA NEGATIVE (NEGATIVE); RESPIRATORY SYNCYTIAL VIR NAA POSITIVE (NEGATIVE)
[2023-09-14] MEDS ORDERED: Albuterol 0.083% 2.5 MG/3 ML Neb Soln NEB PRN (00:47)
[2023-09-14] MEDS ORDERED: Morphine 2 MG/ML SYRINGE IVPUSH PRN (00:47)
[2023-09-14] MEDS ORDERED: LORazepam 2 MG/ML SDV IV PRN (00:47)
[2023-09-14] MEDS ORDERED: Albuterol/Ipratropium 3.0-0.5 MG/3 ML Neb Soln NEB PRN (00:47)
[2023-09-14] MEDS ORDERED: Acetaminophen 325 MG Tab PO PRN (00:47)
[2023-09-14] MEDS ORDERED: Naloxone 0.4 MG/ML SDV IVPUSH PRN (00:47)
[2023-09-14] MEDS ORDERED: Ondansetron 4 MG Tab.DIS PO PRN (00:47)
[2023-09-14] MEDS ORDERED: oxyCODONE 5 MG Tab PO PRN (00:47)
[2023-09-14] MEDS: methylPREDNISolone Sodium Succinate 40 MG/1 ML SDV IVPUSH SCH ×4 (01:17→20:30)
[2023-09-14] MEDS: Sodium Chloride 0.9% 1,000 ML IV SCH ×2 (01:18→03:46)
[2023-09-14] MEDS ORDERED: guaiFENesin 100 MG/5 ML Soln 10 ML UD Cup PO PRN (06:45)
[2023-09-14] MEDS: Pantoprazole 40 MG Tab.CR PO SCH (08:00)
[2023-09-14] MEDS: Ferrous Sulfate 325 MG Tab PO SCH (08:02)
[2023-09-14] MEDS: Aspirin 81 MG Tab.EC PO SCH (08:03)
[2023-09-14] MEDS: Magnesium Oxide 400 MG Tab PO SCH (08:04)
[2023-09-14] MEDS: amLODIPine 5 MG Tab PO SCH (08:04)
[2023-09-14] MEDS: Potassium Chloride 10 MEQ Cap.ER PO SCH (08:09)
[2023-09-14] MEDS: Lisinopril 10 MG Tab PO SCH (08:09)
[2023-09-14] MEDS: FLUoxetine 20 MG Cap PO SCH (08:10)
[2023-09-14] MEDS: Sennosides 8.6 MG Tab PO SCH (08:11)
[2023-09-14] MEDS: Multivitamins with Iron/Calcium/Folic Acid/Minerals Tab PO SCH (08:11)
[2023-09-14] MEDS ORDERED: Non-Formulary Medication 1 Each (Magnesium Chloride [Mag Delay] 64 MG Tablet.Dr) PO SCH (09:00)
[2023-09-14] MEDS ORDERED: FLU (Fluad Quad) 2023-24(65UP)/MF59C/PF 60 MCG/0.5 ML Syringe IM ONE (09:00)
[2023-09-14] MEDS ORDERED: Potassium Chloride 20 MEQ Tab.ER PO ONE (13:00)
[2023-09-14] MEDS: Melatonin 3 MG Tab PO SCH (20:30)
[2023-09-14] MEDS: Rosuvastatin 10 MG Tab PO SCH (20:30)
[2023-09-14] MEDS: Azithromycin 500 MG in Sodium Chloride 0.9% 250 ML IV SCH (20:33)
[2023-09-14] MEDS: Codeine/guaiFENesin 10-100 MG/5 ML Syrup 5 ML Cup PO PRN (22:14)
[2023-09-14] MEDS: cefTRIAXone 1 GM in Sodium Chloride 0.9% 50 ML IV SCH (22:14)
[2023-09-15] MEDS: methylPREDNISolone Sodium Succinate 40 MG/1 ML SDV IVPUSH SCH ×3 (01:06→12:09)
[2023-09-15 05:15] LABS: CALCIUM 7.7 mg/dL (8.5-10.1); EST CRCL DRUG DOSING (CG) 40.28 mL/min; POTASSIUM,K 3.5 mmol/L (3.6-5.2)
[2023-09-15 05:21] LABS: ANION GAP 15.5 mmol/L (5.0-14.0)
[2023-09-15] MEDS: Ferrous Sulfate 325 MG Tab PO SCH (07:22)
[2023-09-15] MEDS: Pantoprazole 40 MG Tab.CR PO SCH (07:22)
[2023-09-15] MEDS ORDERED: Potassium Chloride 20 MEQ Tab.ER PO ONE (09:00)
[2023-09-15] MEDS: Aspirin 81 MG Tab.EC PO SCH (09:06)
[2023-09-15] MEDS: Magnesium Oxide 400 MG Tab PO SCH (09:07)
[2023-09-15] MEDS: amLODIPine 5 MG Tab PO SCH (09:08)
[2023-09-15] MEDS: Potassium Chloride 10 MEQ Cap.ER PO SCH (09:11)
[2023-09-15] MEDS: FLUoxetine 20 MG Cap PO SCH (09:12)
[2023-09-15] MEDS: Lisinopril 10 MG Tab PO SCH (09:12)
[2023-09-15] MEDS: Sennosides 8.6 MG Tab PO SCH (09:12)
[2023-09-15] MEDS: Multivitamins with Iron/Calcium/Folic Acid/Minerals Tab PO SCH (09:13)
[2023-09-15] MEDS: Azithromycin 500 MG in Sodium Chloride 0.9% 250 ML IV SCH (19:41)
[2023-09-15] MEDS: Codeine/guaiFENesin 10-100 MG/5 ML Syrup 5 ML Cup PO PRN (19:42)
[2023-09-15] MEDS: Melatonin 3 MG Tab PO SCH (20:53)
[2023-09-15] MEDS: Rosuvastatin 10 MG Tab PO SCH (20:53)
[2023-09-15] MEDS: cefTRIAXone 1 GM in Sodium Chloride 0.9% 50 ML IV SCH (20:53)
[2023-09-16 05:44] LABS: ANION GAP 11.2 mmol/L (5.0-14.0); CALCIUM 8.3 mg/dL (8.5-10.1); CREATININE 0.8 mg/dL (0.6-1.0); EST CRCL DRUG DOSING (CG) 50.35 mL/min; POTASSIUM,K 3.8 mmol/L (3.6-5.2)
[2023-09-16] MEDS: Pantoprazole 40 MG Tab.CR PO SCH (07:25)
[2023-09-16] MEDS: Codeine/guaiFENesin 10-100 MG/5 ML Syrup 5 ML Cup PO PRN (08:20)
[2023-09-16] MEDS: Magnesium Oxide 400 MG Tab PO SCH (08:21)
[2023-09-16] MEDS: Ferrous Sulfate 325 MG Tab PO SCH (08:21)
[2023-09-16] MEDS: Aspirin 81 MG Tab.EC PO SCH (08:21)
[2023-09-16] MEDS: FLUoxetine 20 MG Cap PO SCH (08:21)
[2023-09-16] MEDS: predniSONE 20 MG Tab PO SCH (08:21)
[2023-09-16] MEDS: Sennosides 8.6 MG Tab PO SCH (08:22)
[2023-09-16] MEDS: Potassium Chloride 10 MEQ Cap.ER PO SCH (08:22)
[2023-09-16] MEDS: amLODIPine 5 MG Tab PO SCH (08:22)
[2023-09-16] MEDS: Multivitamins with Iron/Calcium/Folic Acid/Minerals Tab PO SCH (08:22)
[2023-09-16] MEDS: Lisinopril 10 MG Tab PO SCH (08:22)
[2023-09-16] MEDS: Azithromycin 250 MG Tab PO SCH (20:09)
[2023-09-16] MEDS: Cefdinir 300 MG Cap PO SCH (20:09)
[2023-09-16] MEDS: Rosuvastatin 10 MG Tab PO SCH (20:09)
[2023-09-16] MEDS: Melatonin 3 MG Tab PO SCH (20:10)
[2023-09-17] MEDS: Pantoprazole 40 MG Tab.CR PO SCH (08:37)
[2023-09-17] MEDS: Ferrous Sulfate 325 MG Tab PO SCH (08:37)
[2023-09-17] MEDS: Aspirin 81 MG Tab.EC PO SCH (08:37)
[2023-09-17] MEDS: predniSONE 20 MG Tab PO SCH (08:37)
[2023-09-17] MEDS: Potassium Chloride 10 MEQ Cap.ER PO SCH (08:38)
[2023-09-17] MEDS: Magnesium Oxide 400 MG Tab PO SCH (08:38)
[2023-09-17] MEDS: Lisinopril 10 MG Tab PO SCH (08:38)
[2023-09-17] MEDS: amLODIPine 5 MG Tab PO SCH (08:38)
[2023-09-17] MEDS: Multivitamins with Iron/Calcium/Folic Acid/Minerals Tab PO SCH (08:38)
[2023-09-17] MEDS: Cefdinir 300 MG Cap PO SCH ×2 (08:38→21:10)
[2023-09-17] MEDS: FLUoxetine 20 MG Cap PO SCH (08:39)
[2023-09-17] MEDS: Sennosides 8.6 MG Tab PO SCH (08:39)
[2023-09-17] MEDS: Rosuvastatin 10 MG Tab PO SCH (21:10)
[2023-09-17] MEDS: Azithromycin 250 MG Tab PO SCH (21:10)
[2023-09-17] MEDS: Melatonin 3 MG Tab PO SCH (21:10)
[2023-09-18 05:17] VITALS: PULSE 64
[2023-09-18] MEDS: Pantoprazole 40 MG Tab.CR PO SCH (07:38)
[2023-09-18] MEDS: Ferrous Sulfate 325 MG Tab PO SCH (07:38)
[2023-09-18] MEDS: Codeine/guaiFENesin 10-100 MG/5 ML Syrup 5 ML Cup PO PRN (07:42)
[2023-09-18] MEDS ORDERED: predniSONE 20 MG Tab PO SCH (08:00)
[2023-09-18] MEDS: Aspirin 81 MG Tab.EC PO SCH (09:05)
[2023-09-18] MEDS: Lisinopril 10 MG Tab PO SCH (09:05)
[2023-09-18] MEDS: FLUoxetine 20 MG Cap PO SCH (09:06)
[2023-09-18] MEDS: Cefdinir 300 MG Cap PO SCH (09:06)
[2023-09-18] MEDS: Multivitamins with Iron/Calcium/Folic Acid/Minerals Tab PO SCH (09:06)
[2023-09-18] MEDS: Magnesium Oxide 400 MG Tab PO SCH (09:06)
[2023-09-18 09:07] VITALS: BP 134/74
[2023-09-18] MEDS: amLODIPine 5 MG Tab PO SCH (09:07)
[2023-09-18] MEDS: Potassium Chloride 10 MEQ Cap.ER PO SCH (09:07)
[2023-09-18] MEDS: Sennosides 8.6 MG Tab PO SCH (09:07)
== END 2023-09-18 10:10 | DRG 193 ==
LOC: EDBD 22:23 → JP.ED 22:23 → MERGE 09-14 00:18 → JP.MS 09-14 00:18
PROVIDERS: ADMIT Hospitalist; ATTEND Internal Medicine
DX: J12.1 Respiratory syncytial virus pneumonia (principal); J96.01 Acute respiratory failure with hypoxia; F31.4 Bipolar disorder, current episode depressed, severe, without psychotic features; J44.0 Chronic obstructive pulmonary disease with (acute) lower respiratory infection; J44.1 Chronic obstructive pulmonary disease with (acute) exacerbation; E78.00 Pure hypercholesterolemia, unspecified; Z66 Do not resuscitate; I12.9 Hypertensive chronic kidney disease with stage 1 through stage 4 chronic kidney disease, or unspecified chronic kidney disease; N18.9 Chronic kidney disease, unspecified; J18.9 Pneumonia, unspecified organism; K21.00 Gastro-esophageal reflux disease with esophagitis, without bleeding; R29.6 Repeated falls; E04.2 Nontoxic multinodular goiter; F17.210 Nicotine dependence, cigarettes, uncomplicated; D63.1 Anemia in chronic kidney disease; Z86.16 Personal history of COVID-19; Z90.710 Acquired absence of both cervix and uterus; Z90.49 Acquired absence of other specified parts of digestive tract; Z90.89 Acquired absence of other organs; Z98.1 Arthrodesis status; Z99.81 Dependence on supplemental oxygen; Z86.73 Personal history of transient ischemic attack (TIA), and cerebral infarction without residual deficits; Z79.82 Long term (current) use of aspirin; Z11.52 Encounter for screening for COVID-19; Z79.899 Other long term (current) drug therapy
CPT/HCPCS: 0241U; 36415; 71045; 71045-26; 80048; 81001; 83605; 85025; 86140; 87493; 90694; 96365; 96375; 97110-GP; 97161-GP; 97530-GP; 99222; 99232; 99239; 99284; 99285-25; A9270-GY; G0008; J0456; J0696; J2920; J3490; J7030; J7050; J7512

== ENCOUNTER 2023-11-27 22:27 | Emergency (ER) | payer MEDICARE, OTHER ==
[2023-11-27 23:34] LABS: BASOPHILS ABSOLUTE AUTO 0.04 K/uL (0.00-0.10); BASOPHILS PERCENT AUTO 0.4 % (0.1-1.3); EOSINOPHILS PERCENT AUTO 0.2 % (0.0-5.4); HEMOGLOBIN 11.6 g/dL (11.2-15.5); IMMATURE GRAN ABSOLUTE AUTO 0.03 K/uL (0.00-0.23); IMMATURE GRAN PERCENT AUTO 0.3 % (0.0-0.7); LYMPHOCYTES PERCENT AUTO 6.2 % (11.4-47.7); MEAN CORPUSCULAR HEMOGLOBIN 30.5 pg (31.6-35.5); MEAN CORPUSCULAR HGB CONC 34.1 g/dL (31.6-35.5); MEAN CORPUSCULAR VOLUME 89.5 fL (81.4-99.0); MONOCYTES ABSOLUTE AUTO 0.53 K/uL (0.20-0.90); MONOCYTES PERCENT AUTO 5.5 % (3.3-12.6); NEUTROPHILS ABSOLUTE AUTO 8.39 K/uL (1.0-7.6); NEUTROPHILS PERCENT AUTO 87.4 % (40.0-78.1); PLATELET COUNT,PLT 193 K/uL (130-375); WHITE BLOOD CELL COUNT,WBC 9.6 K/uL (3.2-11.0)
[2023-11-27 23:53] LABS: CALCIUM 8.8 mg/dL (8.5-10.1); CREATININE 1.1 mg/dL (0.6-1.0); EST CRCL DRUG DOSING (CG) 36.31 mL/min; POTASSIUM,K 3.5 mmol/L (3.6-5.2)
[2023-11-27 23:56] LABS: ANION GAP 13.5 mmol/L (5.0-14.0); EOSINOPHILS ABSOLUTE AUTO 0.02 K/uL (0.00-0.40)
[2023-11-28 00:46] VITALS: BP 137/74; PULSE 88
== END 2023-11-28 03:26 | disposition home or self-care (01) ==
LOC: JP.ED 22:27
DX: S02.2XXA Fracture of nasal bones, initial encounter for closed fracture (principal); J44.9 Chronic obstructive pulmonary disease, unspecified; E78.00 Pure hypercholesterolemia, unspecified; I12.9 Hypertensive chronic kidney disease with stage 1 through stage 4 chronic kidney disease, or unspecified chronic kidney disease; N18.9 Chronic kidney disease, unspecified; K21.9 Gastro-esophageal reflux disease without esophagitis; E03.9 Hypothyroidism, unspecified; Z86.16 Personal history of COVID-19; Z79.82 Long term (current) use of aspirin; Z79.899 Other long term (current) drug therapy; Z99.3 Dependence on wheelchair; Z91.048 Other nonmedicinal substance allergy status; W18.30XA Fall on same level, unspecified, initial encounter
CPT/HCPCS: 36415; 70450; 70486; 72125; 76377; 80048; 85025; 99284; 99285